=== PATIENT | male | born 1960 | race Caucasian/White ===

== ENCOUNTER 2018-11-21 09:50 | Emergency (ER) | payer OTHER | END 2018-11-21 11:25 | disposition home or self-care (01) | LOC: FTE 09:50 | DX: L03.019 Cellulitis of unspecified finger (principal) | CPT/HCPCS: 99283; Z7502 ==

== ENCOUNTER 2018-12-01 11:09 | Emergency (ER) | payer OTHER | END 2018-12-01 11:39 | disposition home or self-care (01) | LOC: FTE 11:09 | DX: Z48.01 Encounter for change or removal of surgical wound dressing (principal) | CPT/HCPCS: 99281; Z7502 ==

== ENCOUNTER 2019-05-28 12:17 | Emergency (ER) | payer OTHER | END 2019-05-28 14:44 | disposition home or self-care (01) | LOC: FTE 14:44 | DX: T63.444A Toxic effect of venom of bees, undetermined, initial encounter (principal) | CPT/HCPCS: 99282; Z7502 ==